=== PATIENT | male | born 1945 | race Caucasian/White ===

== ENCOUNTER 2016-07-31 12:45 | Inpatient (IN) | payer MEDICARE, MEDICAID ==
[~2016-07-31] VITALS: Ht 188 cm; Wt 115.6 kg
[2016-07-31 12:59] LABS: ABG A-A DIFF O2 552.9 mmHg (10-20.0); ABG BASE EXCESS 13.6 mmol/L (-2.0-3.0); ABG HCO3 35.2 mmol/L (22.0-26.0); ABG OXYHEMOGLOBIN 92.7 % (94.0-100.0); ABG PH 7.349 (7.35-7.450); TEMPERATURE, FAHRENHEIT, BG 98.6 FAHREN (96.0-98.6)
[2016-07-31 13:00] LABS: ABG PCO2 73 mmHg (35-45); ALLEN TEST, BLOOD GAS Positive; IPAP, BG 18 cm H2O
[2016-07-31] MEDS ORDERED: MethylPREDNISolone SOD SUCC 125 MG/2 ML VIAL IVP ONE (13:00)
[2016-07-31] MEDS ORDERED: IPRATROPIUM BROMIDE 0.5 MG/2.5 ML NEB SOLUTION NEB ONE (13:00)
[2016-07-31] MEDS ORDERED: FUROSEMIDE 40 MG/4 ML VIAL IVP ONE (13:00)
[2016-07-31] MEDS ORDERED: ALBUTEROL SULFATE 5 MG/ML 20 ML NEB SOLN [BULK] NEB ONE (13:00)
[2016-07-31] MEDS ORDERED: LISI10TA7 PO (13:22)
[2016-07-31] MEDS ORDERED: ASPI-556 PO (13:22)
[2016-07-31] MEDS ORDERED: SIMV20TA6 PO (13:22)
[2016-07-31] MEDS ORDERED: HALO5TAB23 PO (13:22)
[2016-07-31] MEDS ORDERED: BECL8.7A5 IH (13:22)
[2016-07-31] MEDS ORDERED: ENOX120D SQ (13:22)
[2016-07-31] MEDS ORDERED: PANT40TA25 PO (13:22)
[2016-07-31] MEDS ORDERED: FURO-151 PO (13:22)
[2016-07-31] MEDS ORDERED: IPRA3AMP4 NEB (13:22)
[2016-07-31] MEDS ORDERED: ADV500 IH (13:22)
[2016-07-31] MEDS ORDERED: INSLAN SQ (13:22)
[2016-07-31] MEDS ORDERED: HYDR-309 PO (13:22)
[2016-07-31] MEDS ORDERED: PRED10TA3 PO (13:22)
[2016-07-31] MEDS ORDERED: INSU100C14 SQ (13:22)
[2016-07-31] MEDS ORDERED: KDUR10 PO (13:22)
[2016-07-31] MEDS ORDERED: GABA600T PO (13:22)
[2016-07-31] MEDS ORDERED: AMIT25TA9 PO (13:22)
[2016-07-31] MEDS ORDERED: FERR-72 PO (13:22)
[2016-07-31] MEDS ORDERED: PRED20 PO (13:35)
[2016-07-31 13:40] LABS: EOSINOPHILS % (AUTO) 0.1 % (1.0-6.0); NEUTROPHILS # (AUTO) 11.6 K/uL (1.8-7.7)
[2016-07-31 13:48] LABS: ABG A-A DIFF O2 162.5 mmHg (10-20.0); ABG BASE EXCESS 16.4 mmol/L (-2.0-3.0); ABG HCO3 37.3 mmol/L (22.0-26.0); ABG OXYHEMOGLOBIN 84.7 % (94.0-100.0); TEMPERATURE, FAHRENHEIT, BG 98.6 FAHREN (96.0-98.6)
[2016-07-31 13:49] LABS: ABG PCO2 87 mmHg (35-45); ALLEN TEST, BLOOD GAS Positive; IPAP, BG 18 cm H2O
[2016-07-31 13:51] LABS: LYMPHOCYTES # (AUTO) 0.2 K/uL (1.0-4.8); LYMPHOCYTES % (AUTO) 1.3 % (22.0-44.0); MEAN CORPUSCULAR HEMOGLOBIN 25.6 pg (26.0-34.0); MEAN CORPUSCULAR HGB CONC 29.1 G/dL (31.0-37.0); MEAN CORPUSCULAR VOLUME 88 fL (80-100); MONOCYTES # (AUTO) 0.3 K/uL (0.1-1.0); MONOCYTES % (AUTO) 2.7 % (2.0-9.0); PLATELET COUNT (AUTO) 81 K/uL (150-450); RED BLOOD CELL COUNT(AUTO) 3.53 MIL/uL (4.50-5.90); RED CELL DISTRIBUTION WIDTH 23.6 % (11.5-14.5); WHITE BLOOD COUNT (AUTO) 12.1 K/uL (4.5-11.0)
[2016-07-31 14:07] LABS: ALANINE AMINOTRANSFERASE 75 U/L (12-78); ALBUMIN 2.9 g/dL (3.4-5.0); ANION GAP 1 mmol/L (8-16); ASPARTATE AMINOTRANSFERASE 17 U/L (15-37); BILIRUBIN,TOTAL 1.1 mg/dL (0.1-1.0); CALCIUM, TOTAL 7.5 mg/dL (8.8-10.5); CARBON DIOXIDE 40 mmol/L (22-29); CHLORIDE 102 mmol/L (98-107); CREATINE KINASE, TOTAL 33 U/L (39-308); CREATININE 0.83 mg/dL (0.60-1.30); GLOMERULAR FILTR. RATE CALC > 60 mL/min (>60); POTASSIUM 3.8 mmol/L (3.5-5.1); SODIUM SERUM 143 mmol/L (136-145); TOTAL PROTEIN, SERUM 5.8 g/dL (6.4-8.2); UREA NITROGEN, BLOOD 13 mg/dL (7-18)
[2016-07-31 14:18] LABS: NEUTROPHILS % (AUTO) 95.9 % (40.0-70.0)
[2016-07-31 14:23] LABS: B-TYPE NATRIURETIC PEPTIDE 62 pg/mL (0-100)
[2016-07-31 14:26] LABS: ADD UA MICROSCOPIC NO; APPEARANCE,URINE CLOUDY (CLEAR); GLUCOSE, URINE (UA) NEGATIVE (NEGATIVE); KETONES,URINE NEGATIVE (NEGATIVE); LEUKOCYTE ESTERASE ,URINE NEGATIVE (NEGATIVE); OCCULT BLOOD,URINE NEGATIVE (NEGATIVE); PH,URINE 5.5 (5.0-8.0); PROTEIN,URINE NEGATIVE (NEGATIVE)
[2016-07-31 14:45] LABS: ABG A-A DIFF O2 175.8 mmHg (10-20.0); ABG HCO3 36.3 mmol/L (22.0-26.0); ABG PCO2 77 mmHg (35-45); ABG PH 7.342 (7.35-7.450); ALLEN TEST, BLOOD GAS Positive; IPAP, BG 24 cm H2O; TEMPERATURE, FAHRENHEIT, BG 98.6 FAHREN (96.0-98.6)
[2016-07-31] MEDS ORDERED: ACETAMINOPHEN 325 MG TABLET PO PRN (15:15)
[2016-07-31] MEDS ORDERED: BISACODYL 10 MG RECTAL RECTAL SUPPOSITORY PR PRN (15:15)
[2016-07-31] MEDS ORDERED: MAGNESIUM HYDROXIDE SUSPENSION 30 ML UDCUP PO PRN (15:15)
[2016-07-31] MEDS ORDERED: DEXTROSE 50%-WATER 25 GM/50 ML SYRINGE IVP PRN (15:30)
[2016-07-31] MEDS ORDERED: LEVOFLOXACIN 750 MG/D5% WATER 150 ML IV ONE (15:30)
[2016-07-31] MEDS ORDERED: *CLINICAL-LEVOFLOXACIN IVPB DOSING CLINICAL ONE ×2 (15:30)
[2016-07-31] MEDS ORDERED: HEPARIN SODIUM,PORCINE 5,000 UNITS/ML VIAL SQ SCH (16:00)
[2016-07-31] MEDS: MethylPREDNISolone SOD SUCC 125 MG/2 ML VIAL IVP SCH (18:01)
[2016-07-31 18:50] LABS: ABG A-A DIFF O2 98.9 mmHg (10-20.0); ABG BASE EXCESS 18.3 mmol/L (-2.0-3.0); ABG HCO3 39.6 mmol/L (22.0-26.0); ABG OXYHEMOGLOBIN 94.5 % (94.0-100.0); ABG PH 7.383 (7.35-7.450); TEMPERATURE, FAHRENHEIT, BG 98.5 FAHREN (96.0-98.6)
[2016-07-31 18:52] LABS: ABG PCO2 74 mmHg (35-45); ALLEN TEST, BLOOD GAS POS; IPAP, BG 18 cm H2O
[2016-07-31] MEDS: ALBUTEROL SULFATE 2.5 MG/0.5 ML NEB SOLUTION NEB SCH ×2 (19:12→22:51)
[2016-07-31] MEDS: IPRATROPIUM BROMIDE 0.5 MG/2.5 ML NEB SOLUTION NEB SCH ×2 (19:12→22:51)
[2016-07-31 21:00] VITALS: BP 115/40
[2016-07-31 21:37] VITALS: BP 116/47
[2016-07-31] MEDS: DOCUSATE SODIUM 100 MG CAPSULE PO SCH (21:41)
[2016-07-31] MEDS: HYDROCODONE/ACETAMINOPHEN 5-325 MG TABLET PO PRN (21:41)
[2016-07-31] MEDS: ENOXAPARIN SODIUM 60 MG/0.6 ML PF SYRINGE SQ SCH (22:14)
[2016-07-31] MEDS: INSULIN ASPART 100 UNITS/ML SQ PRN (22:22)
[2016-07-31 22:37] VITALS: BP 118/48
[2016-08-01] VITALS: BP 128/52
[2016-08-01] MEDS: MethylPREDNISolone SOD SUCC 125 MG/2 ML VIAL IVP SCH ×5 (00:43→23:41)
[2016-08-01] MEDS ORDERED: 0.9% SODIUM CHLORIDE 10 ML SYRINGE IVP PRN (00:45)
[2016-08-01 01:22] LABS: GLUCOSE COMMENT 1 Received Meds; GLUCOSE,POINT OF CARE 187 MG/DL (70-110)
[2016-08-01] MEDS: ALBUTEROL SULFATE 2.5 MG/0.5 ML NEB SOLUTION NEB SCH ×6 (03:01→22:04)
[2016-08-01] MEDS: IPRATROPIUM BROMIDE 0.5 MG/2.5 ML NEB SOLUTION NEB SCH ×6 (03:01→22:04)
[2016-08-01 04:00] VITALS: BP 117/47
[2016-08-01 06:28] LABS: ANION GAP -1 mmol/L (8-16); CALCIUM, TOTAL 7.6 mg/dL (8.8-10.5); CHLORIDE 100 mmol/L (98-107); CREATININE 0.65 mg/dL (0.60-1.30); GLOMERULAR FILTR. RATE CALC > 60 mL/min (>60); POTASSIUM 3.9 mmol/L (3.5-5.1); SODIUM SERUM 141 mmol/L (136-145); UREA NITROGEN, BLOOD 13 mg/dL (7-18)
[2016-08-01 06:40] LABS: CARBON DIOXIDE 42 mmol/L (22-29)
[2016-08-01] MEDS: INSULIN ASPART 100 UNITS/ML SQ PRN ×3 (06:46→21:29)
[2016-08-01 06:49] LABS: EOSINOPHILS # (AUTO) 0.01 K/uL (0.00-0.70); EOSINOPHILS % (AUTO) 0.11 % (1.0-6.0); HEMATOCRIT 26.8 % (41-53); HEMOGLOBIN 8.2 g/dL (13.5-17.5); LYMPHOCYTES # (AUTO) 0.3 K/uL (1.0-4.8); LYMPHOCYTES % (AUTO) 3.5 % (22.0-44.0); MEAN CORPUSCULAR HEMOGLOBIN 25.8 pg (26.0-34.0); MEAN CORPUSCULAR HGB CONC 30.5 G/dL (31.0-37.0); MEAN CORPUSCULAR VOLUME 85 fL (80-100); MONOCYTES # (AUTO) 0.1 K/uL (0.1-1.0); MONOCYTES % (AUTO) 1.7 % (2.0-9.0); NEUTROPHILS # (AUTO) 6.8 K/uL (1.8-7.7); RED BLOOD CELL COUNT(AUTO) 3.16 MIL/uL (4.50-5.90); RED CELL DISTRIBUTION WIDTH 23.8 % (11.5-14.5); WHITE BLOOD COUNT (AUTO) 7.2 K/uL (4.5-11.0)
[2016-08-01 07:02] LABS: NEUTROPHILS % (AUTO) 94.7 % (40.0-70.0)
[2016-08-01 08:00] VITALS: BP 129/45
[2016-08-01] MEDS: DOCUSATE SODIUM 100 MG CAPSULE PO SCH ×2 (08:06→21:32)
[2016-08-01] MEDS: PANTOPRAZOLE SODIUM 40 MG DR TABLET PO SCH (08:06)
[2016-08-01] MEDS: ENOXAPARIN SODIUM 60 MG/0.6 ML PF SYRINGE SQ SCH ×2 (08:06→21:33)
[2016-08-01] MEDS: ASPIRIN 81 MG CHEWABLE TABLET PO SCH (08:07)
[2016-08-01 09:07] LABS: GLUCOSE COMMENT 1 Received Meds; GLUCOSE,POINT OF CARE 165 MG/DL (70-110)
[2016-08-01] MEDS ORDERED: FUROSEMIDE 40 MG/4 ML VIAL IVP SCH (09:30)
[2016-08-01 10:18] LABS: PLATELET COUNT (AUTO) 70 K/uL (150-450); RBC MORPHOLOGY COMMENT ABNORMAL RBC MORPH
[2016-08-01 11:42] LABS: GLUCOSE COMMENT 1 Received Meds; GLUCOSE,POINT OF CARE 136 MG/DL (70-110)
[2016-08-01 12:00] VITALS: BP 125/48
[2016-08-01] MEDS: LEVOFLOXACIN 750 MG/D5% WATER 150 ML IV SCH (15:48)
[2016-08-01 16:00] VITALS: BP 123/41
[2016-08-01 17:17] LABS: GLUCOSE COMMENT 1 Received Meds; GLUCOSE,POINT OF CARE 150 MG/DL (70-110)
[2016-08-01] MEDS: HYDROCODONE/ACETAMINOPHEN 5-325 MG TABLET PO PRN (18:20)
[2016-08-01 20:53] VITALS: BP 116/57
[2016-08-02] VITALS (7 sets, daily range): BP systolic 124–136; BP diastolic 57–82
[2016-08-02] MEDS: HYDROCODONE/ACETAMINOPHEN 5-325 MG TABLET PO PRN ×3 (00:23→15:03)
[2016-08-02] MEDS: ALBUTEROL SULFATE 2.5 MG/0.5 ML NEB SOLUTION NEB SCH ×4 (03:11→14:35)
[2016-08-02] MEDS: IPRATROPIUM BROMIDE 0.5 MG/2.5 ML NEB SOLUTION NEB SCH ×6 (03:11→23:45)
[2016-08-02] MEDS: MethylPREDNISolone SOD SUCC 125 MG/2 ML VIAL IVP SCH ×3 (05:22→18:04)
[2016-08-02] MEDS: INSULIN ASPART 100 UNITS/ML SQ PRN ×4 (06:50→22:51)
[2016-08-02 06:54] LABS: ANION GAP 4 mmol/L (8-16); CALCIUM, TOTAL 7.8 mg/dL (8.8-10.5); CARBON DIOXIDE 38 mmol/L (22-29); CHLORIDE 99 mmol/L (98-107); CREATININE 0.83 mg/dL (0.60-1.30); GLOMERULAR FILTR. RATE CALC > 60 mL/min (>60); POTASSIUM 3.3 mmol/L (3.5-5.1); SODIUM SERUM 141 mmol/L (136-145); UREA NITROGEN, BLOOD 21 mg/dL (7-18)
[2016-08-02 07:13] LABS: HEMATOCRIT 27.1 % (41-53); HEMOGLOBIN 8.2 g/dL (13.5-17.5); MEAN CORPUSCULAR HEMOGLOBIN 25.8 pg (26.0-34.0); MEAN CORPUSCULAR HGB CONC 30.1 G/dL (31.0-37.0); MEAN CORPUSCULAR VOLUME 86 fL (80-100); PLATELET COUNT (AUTO) 93 K/uL (150-450); RED BLOOD CELL COUNT(AUTO) 3.17 MIL/uL (4.50-5.90); RED CELL DISTRIBUTION WIDTH 24.5 % (11.5-14.5); WHITE BLOOD COUNT (AUTO) 7.7 K/uL (4.5-11.0)
[2016-08-02 08:41] LABS: BAND NEUTROPHILS % (MANUAL) 16 % (1-5); LYMPHOCYTES % (MANUAL) 7 % (22-44); TOTAL CELLS COUNTED 100
[2016-08-02 08:42] LABS: RBC MORPHOLOGY COMMENT ABNORMAL RBC MORPH
[2016-08-02] MEDS: FUROSEMIDE 40 MG/4 ML VIAL IVP SCH (08:55)
[2016-08-02] MEDS: PANTOPRAZOLE SODIUM 40 MG DR TABLET PO SCH (08:55)
[2016-08-02] MEDS: FLUTICASONE/SALMETEROL 500 MCG-50 MCG/INH DISKUS INHALER [28] IH SCH ×2 (08:55→20:27)
[2016-08-02] MEDS: ASPIRIN 81 MG CHEWABLE TABLET PO SCH (08:55)
[2016-08-02] MEDS: DOCUSATE SODIUM 100 MG CAPSULE PO SCH ×2 (08:56→20:27)
[2016-08-02] MEDS: MICONAZOLE NITRATE 2% 142 GM CREAM [BAZA] TP SCH (17:34)
[2016-08-02] MEDS: MINERAL OIL/PETROLATUM 120 GM CREAM TP SCH (17:34)
[2016-08-02] MEDS: LEVOFLOXACIN 750 MG/D5% WATER 150 ML IV SCH (17:36)
[2016-08-02] MEDS ORDERED: SODIUM CHLORIDE 0.9% 250 ML IV ONE (18:10)
[2016-08-02] MEDS: ALBUTEROL SULFATE 2.5 MG/0.5 ML NEB SOLUTION NEB PRN (19:40)
[2016-08-02] MEDS ORDERED: APIXABAN 5 MG TABLET PO SCH (21:00)
[2016-08-03] MEDS: MethylPREDNISolone SOD SUCC 125 MG/2 ML VIAL IVP SCH ×4 (00:18→17:45)
[2016-08-03 01:07] VITALS: BP 138/77
[2016-08-03] MEDS: IPRATROPIUM BROMIDE 0.5 MG/2.5 ML NEB SOLUTION NEB SCH ×5 (03:05→18:01)
[2016-08-03 03:20] VITALS: BP 136/72
[2016-08-03] MEDS: HYDROCODONE/ACETAMINOPHEN 5-325 MG TABLET PO PRN ×3 (03:21→18:54)
[2016-08-03 05:53] VITALS: BP 147/72
[2016-08-03] MEDS: INSULIN ASPART 100 UNITS/ML SQ PRN ×3 (06:10→17:45)
[2016-08-03 07:12] LABS: GLUCOSE COMMENT 1 Received Meds; GLUCOSE,POINT OF CARE 170 MG/DL (70-110)
[2016-08-03 07:12] LABS: GLUCOSE COMMENT 1 Received Meds; GLUCOSE,POINT OF CARE 169 MG/DL (70-110)
[2016-08-03] MEDS ORDERED: 0.9% SODIUM CHLORIDE 5 ML NEB SOLUTION NEB ONE ×2 (07:42→14:12)
[2016-08-03 07:57] VITALS: BP 155/65
[2016-08-03 07:59] LABS: CHLORIDE 98 mmol/L (98-107); CREATININE 0.84 mg/dL (0.60-1.30); GLOMERULAR FILTR. RATE CALC > 60 mL/min (>60); POTASSIUM 4.1 mmol/L (3.5-5.1); SODIUM SERUM 141 mmol/L (136-145); UREA NITROGEN, BLOOD 20 mg/dL (7-18)
[2016-08-03 08:00] LABS: ANION GAP 3 mmol/L (8-16); CARBON DIOXIDE 40 mmol/L (22-29)
[2016-08-03] MEDS ORDERED: MORPHINE SULFATE 2 MG/ML SYRINGE IVP ONE (08:15)
[2016-08-03] MEDS: FUROSEMIDE 40 MG/4 ML VIAL IVP SCH (08:23)
[2016-08-03 09:17] LABS: INR 1.4 (0.9-1.1); PROTHROMBIN TIME 14.8 SEC (9.4-11.6)
[2016-08-03 11:37] VITALS: BP 129/57
[2016-08-03] MEDS: DOCUSATE SODIUM 100 MG CAPSULE PO SCH (11:48)
[2016-08-03] MEDS: ASPIRIN 81 MG CHEWABLE TABLET PO SCH (11:48)
[2016-08-03] MEDS: PANTOPRAZOLE SODIUM 40 MG DR TABLET PO SCH (11:50)
[2016-08-03] MEDS: FLUTICASONE/SALMETEROL 500 MCG-50 MCG/INH DISKUS INHALER [28] IH SCH (11:50)
[2016-08-03] MEDS: MINERAL OIL/PETROLATUM 120 GM CREAM TP SCH (11:51)
[2016-08-03] MEDS: MICONAZOLE NITRATE 2% 142 GM CREAM [BAZA] TP SCH (11:51)
[2016-08-03 13:21] LABS: APPEARANCE,UNSPUN,BODY FLUID HAZY (CLEAR); COLOR,BODY FLUID YELLOW (LT YELLOW)
[2016-08-03 13:27] LABS: OTHER CELLS,BODY FLUID MESOTHELIALS
[2016-08-03] MEDS: ALBUTEROL SULFATE 2.5 MG/0.5 ML NEB SOLUTION NEB PRN ×2 (14:18→18:01)
[2016-08-03 15:36] VITALS: BP 144/75
[2016-08-03] MEDS: LEVOFLOXACIN 750 MG/D5% WATER 150 ML IV SCH (16:10)
[2016-08-03] MEDS ORDERED: PredniSONE 20 MG TABLET PO ONE (18:15)
[2016-08-04 16:17] LABS: TOTAL PROTEIN,BODY FLUID,REF 0.8 g/dL
[2016-08-05 12:57] LABS: GLUCOSE COMMENT 1 Received Meds; GLUCOSE,POINT OF CARE 153 MG/DL (70-110)
== END 2016-08-03 19:10 | DRG 189 ==
LOC: EMS 12:48 → ICUN 17:03 → 5S 08-01 19:00
PROVIDERS: ADMIT Internal Medicine; ATTEND Internal Medicine
PROC: 5A09357 Assistance with Respiratory Ventilation, Less than 24 Consecutive Hours, Continuous Positive Airway Pressure (ICD-10-PCS; principal; 2016-07-31)
PROC: 0W993ZZ Drainage of Right Pleural Cavity, Percutaneous Approach (ICD-10-PCS; 2016-08-03)
DX: J96.01 Acute respiratory failure with hypoxia (principal); E43 Unspecified severe protein-calorie malnutrition; J44.1 Chronic obstructive pulmonary disease with (acute) exacerbation; E87.2 Acidosis; J90 Pleural effusion, not elsewhere classified; L03.116 Cellulitis of left lower limb; L03.115 Cellulitis of right lower limb; I50.30 Unspecified diastolic (congestive) heart failure; I11.0 Hypertensive heart disease with heart failure; J96.02 Acute respiratory failure with hypercapnia; E66.9 Obesity, unspecified; E11.9 Type 2 diabetes mellitus without complications; I48.91 Unspecified atrial fibrillation; B19.20 Unspecified viral hepatitis C without hepatic coma; Z87.01 Personal history of pneumonia (recurrent); I49.5 Sick sinus syndrome; E11.51 Type 2 diabetes mellitus with diabetic peripheral angiopathy without gangrene; Z79.4 Long term (current) use of insulin; R53.81 Other malaise; Z95.0 Presence of cardiac pacemaker; F17.210 Nicotine dependence, cigarettes, uncomplicated; Z71.6 Tobacco abuse counseling; Z68.37 Body mass index [BMI] 37.0-37.9, adult
CPT/HCPCS: 32555; 71250; 76942; 82465; 82805; 82945; 82962; 83605; 83615; 83986; 84157; 87015; 87040; 87070; 87081; 87101; 87205; 88108; 89051; 93005; 93306; 93970; 94640; 94644; 94660; 96365; 96375; 99291; J1650; J1940; J1956; J2270; J2930; J3535; J7050